=== PATIENT | female | born 1950 | race Caucasian/White ===

== ENCOUNTER 2021-08-01 15:15 | Outpatient (RCR) | payer MEDICARE, SELFPAY ==
--- NOTE | 2021-08-01 16:25 | HP.PTEVAL ---
Patient's Visit Information CAROL CARLIN is a 71 year old F referred to Physical Therapy by Dr. Tony Wheeler DO with a diagnosis of ITBand Syndrome. Date of Evaluation: 08/01/21 Physical Therapist: Inna Gupta DPT - Visit Plan Frequency: 1x/Week Duration: 4 Weeks Plan: 1x a week then follow up in 1 month- due to co-pay. HEP Given IE: postural education, bridge, SLR, supine hs stretch 90/90, clams, rolling with ball and rolling pin - Subjective Patient reports that she has pain in the lateral aspect of her hip and in her back- she reports its been going on for years. Did have injections a few weeks ago in her left hip along the ITBand. She feels like the pain is worse. She has pain to get up and move and sleep on her side. Pain is located along the ITBand on the left side- feels like it itches but can't scratch the itch. No radiating pain past the knee. The pain comes and goes. Does not hurt regularly just if she touches it. She reports that she is going to see the chiropractor (roller table, manipulation). The back pain is getting a lot better since she has been seeing the chiropractor. She had x-rays of her spine and her left hip which both showed arthritis. Has started wearing a TENS unit and a back brace. Sleep: disturbed- hard to get comfortable. She reports that she is pretty active- but she has started walking this week 15 min around the community. She likes to play computer and phone games. She does not have any exercises for her back. - Objective Posture: FH, RS- can correct with verbal and tactile cues but does not maintain. Gait: no deviation noted- good arm swing and trunk rotation. HR/TR: able. SLS: 5 seconds then LOB. Sensation: WFL. Reflex: Patellar 2+. ROM: WFL in all planes in the lumbar spine with discomfort. Strength: Core: poor plus, Left Hip: 4-/5 throughout, Knee: 4+/5, Ankle: 4+/5 Right: Hip: 4+/5, Knee: 5/5, Ankle: 5/5. Flex: HS: moderate, Gastroc: moderate. - Special Tests L/S Slump test left side: Positive L/S Slump test right side: Negative L/S Left Straight Leg Raise: Positive L/S Right Straight Leg Raise: Negative L Hip Scour: Negative L Hip [place] - Intraarticular Pathology: Positive L Hip FADDIR - Labrum: Positive L Hip Itzel - IT Band: Positive - Balance/Special Test Scores Lower Extremity Functional Score: 53 - Goals Goal 1:: Patient will be I with HEP and progression Goal Time Frame: 4-6 Weeks Goal 2:: Patient will maintain proper posture t/o tx session to demo increased core s/s Goal Time Frame: 4-6 Weeks Goal 3:: Patient will report no thigh pain for 1 week Goal Time Frame: 4-6 Weeks - Rehabilitation Potential Physical Therapy Diagnosis: Patient presents with hypomobility- she has decreased core strength/stabilization and muscular endurance leading to poor posture and increased pain with ADL's. Rehabilitation Potential: Good - Anticipated Interventions Patient/Client Instruction: Educate patient on: Benefits of Fitness Program Therapeutic Exercise to Include: Strength training, Endurance training, Balance training, Coordination, Agility training, Body mechanics, Postural training, Flexibilty training, Gait and locomotor training, Neuromotor development, Dynamic Lumbar Stabilization, Scapular Strength/Stabilization For the Purpose of:: To improve muscle performance and motor function Thank you for the opportunity to evaluate your patient. For Medicare and Medicare HMO plans, please review the plan of care and approve it. It will need to be FAXED BACK to us at [phone] for Medicare purposes. For Medicare only, by signing this I certify the plan of care. Please let me know if there are questions or concerns regarding this plan of care. Physician Signature: Date:
--- NOTE | 2021-08-29 15:28 | HP.PT.NRP ---
CAROL CARLIN was seen in my office for initial evaluation on 08/01/21. The following Plan of Care was established for this patient: Initial Frequency: 1x/Week Initial Duration: 4 Weeks Patient/Client Instruction: Educate patient on: Benefits of Fitness Program Therapeutic Exercise to Include: Strength training, Endurance training, Balance training, Coordination, Agility training, Body mechanics, Postural training, Flexibilty training, Gait and locomotor training, Neuromotor development, Dynamic Lumbar Stabilization, Scapular Strength/Stabilization For the Purpose of:: To improve muscle performance and motor function This patient was last seen in our office . Pertinent comments regarding their Physical therapy will appear below: Patient has attended PT in over 30 days- appropriate to be d/c from PT- follow up with MD for further evaluation. At this point I will be discontinuing this patient from physical therapy. I would be happy to see this patient again in the future if found appropriate by the physician. Thank you! Inna Gupta, DPT Balance/Gait/Functional tests - Balance/Special Test Scores Lower Extremity Functional Score: 53
== END 2021-08-01 19:00 | disposition home or self-care (01) ==
LOC: PT 15:15
PROVIDERS: PCP Preventive Medicine Occupational Medicine; Referring Provider Orthopaedic Surgery; Visit Provider Orthopaedic Surgery
DX: M70.62 Trochanteric bursitis, left hip (principal)
CPT/HCPCS: 97110; 97162